=== PATIENT | male | born 1995 | race Caucasian/White ===

== ENCOUNTER 2025-01-28 06:46 | Emergency (ER) | payer MEDICAID ==
[~2025-01-28] VITALS: Ht 177.8 cm; Wt 105.0 kg
[2025-01-28 06:51] VITALS: O2SAT 98
[2025-01-28] MEDS: FLUORESCEIN SODIUM 1MG/STRIP RIGHTEYE ONE (07:40)
[2025-01-28] MEDS: TETRACAINE 0.5% OPHTH DROPS 4ML BOTHEYE ONE (07:40)
[2025-01-28] MEDS ORDERED: PRED5DRO22 RIGHTEYE (09:09)
[2025-01-28 09:26] VITALS: BP 114/73; PULSE 66; RESP 18; TEMP 36.9; O2SAT 98
== END 2025-01-28 09:35 | disposition home or self-care (01) ==
LOC: ER 06:46
DX: H10.9 Unspecified conjunctivitis (principal); Z79.899 Other long term (current) drug therapy
CPT/HCPCS: 99283